=== PATIENT | male | born 1975 ===

== ENCOUNTER 2024-09-17 09:27 | Day surgery (SDC) | payer OTHER ==
[2024-09-16 11:54] LABS: BASO % 0.6 % (0.1-1.2); EOS # 0.04 (0.04-0.54); EOS % 0.6 % (0.7-7.0); HEMATOCRIT 36.2 % (40.1-51.0); HEMOGLOBIN 12.7 g/dL (13.7-17.5); LYMPH # 4.23 (1.18-3.74); LYMPH % 63.9 % (19.3-53.1); MEAN CORPUSCULAR HEMOGLOBIN 33.2 pg (25.6-32.2); MONO # 0.52 (0.24-0.82); MONO % 7.9 % (4.7-12.5); NEUT # 1.78 (1.56-6.13); NEUT % 26.8 % (34.0-71.1); PLATELET COUNT 293 K/uL (163-369); RED BLOOD COUNT 3.82 M/uL (4.63-6.08); RED CELL DISTRIBUTION WIDTH 13.5 % (11.6-14.4)
[2024-09-16 12:01] LABS: PH,URINE 5.5 (5.0-8.0); URINE APPEARANCE Clear; URINE BILIRRUBIN Negative (NEGATIVE); URINE BLOOD Negative; URINE COLOR Yellow; URINE GLUCOSE Negative (NEGATIVE); URINE KETONE Trace (NEGATIVE); URINE LEUKOCYTE Negative; URINE NITRATE Negative; URINE PROTEIN Negative (NEGATIVE); URINE UROBILINOGEN 0.2 E.U./dl
[2024-09-16 12:06] LABS: URINE BACTERIA 4.8 uL (0.0-1933); URINE RBC 3.5 uL (0.0-20.8); URINE WBC 2.6 uL (0.0-23.2)
[2024-09-16 12:20] LABS: URINE CAST 0.29 uL (0.0-1.40); URINE EPITHELIAL CELLS 0.9 uL (0.0-38.8)
[2024-09-16 12:21] LABS: PARTIAL THROMBOPLASTIN TIME 25.2 SECONDS (22.0-34.0); PROTHROMBIN TIME 10.9 SECONDS (9.0-11.5)
[2024-09-16 12:27] VITALS: BP 105/71
[2024-09-16 13:13] LABS: ALBUMIN 4.1 gm/dL (3.4-5.0); BILIRUBIN TOTAL 0.68 mg/dL (0.3-1.2); CALCIUM 9.4 mg/dL (8.5-10.1); CREATININE SERUM 0.72 mg/dL (0.70-1.30); GFR 117.01; GLOBULINA 2.9 G/DL (2.4-3.5); POTASSIUM 4.34 mEq/L (3.5-5.1)
[~2024-09-17] VITALS: Ht 182.9 cm; Wt 95.3 kg
[~2024-09-17 09:27] MED LIST: BETAPACE80 MG PO; CLONAZEPAM0.5 MG PO; ZOLOFT50 MG PO
[2024-09-17] MEDS ORDERED: CIPROFLOXACIN IN 5 % DEXTROSE 400 MG/200 ML PIGGYBAG IV ONE (09:43)
[2024-09-17] MEDS ORDERED: METRONIDAZOLE/SODIUM CHLORIDE 500 MG/100 ML PIGGYBACK IV ONE (09:43)
[2024-09-17] MEDS ORDERED: BUPIVACAINE HCL/Mpf 0.5% 10ML VIAL ONE (10:17)
[2024-09-17] MEDS ORDERED: LIDOCAINE HCL 1%/EPINEPHRINE 20ML VIAL IJ ONE (10:17)
[2024-09-17] MEDS ORDERED: POVIDONE-IODINE 118 ML BOTT TOP ONE (10:17)
[2024-09-17] MEDS ORDERED: DIBUCAINE 30 GM TUBE ONE (10:17)
[2024-09-17] MEDS ORDERED: HEMOSTATIC MATRIX 1 KIT KIT TOP ONE (10:17)
[2024-09-17] MEDS ORDERED: HYDROGEN PEROXIDE 473 ML BOTTLE TOP ONE (11:19)
== END 2024-09-17 17:25 | disposition home or self-care (01) ==
LOC: CIR.AMB 09:27
PROVIDERS: ATTEND Colon & Rectal Surgery
DX: K60.321 Anal fistula, complex, initial (principal); K60.42 Rectal fistula, complex